=== PATIENT | male | born 1970 | race Caucasian/White ===

== ENCOUNTER 2023-11-01 21:57 | Emergency (ER) | payer OTHER ==
[2023-11-01 22:13] VITALS: BP 135/78; O2SAT 100
[2023-11-01] MEDS: TETANUS/DIPHTHERIA/PERTUSSIS 0.5 ML SYRINGE IM ONE (22:33)
--- NOTE | 2023-11-01 22:41 | ED Physician Documentation ---
PD HPI UPPER EXT INJURY - Stated complaint Stated Complaint: RT FINGER LAC - Chief complaint Chief Complaint: Laceration - History obtained from History obtained from: Patient - History of Present Illness Location: Right, Finger Where injury occurred: Home - Additonal information Additional information: 53-year-old male presents to the emergency department with a laceration to the right fourth digit. This occurred at home about 3 hours prior to arrival. He was putting a metal stake in the ground and it accidentally cut his finger. Unknown last tetanus shot. Nothing makes it better or worse. Not anticoagulated. No numbness or tingling. PD PAST MEDICAL HISTORY - Past Medical History Past Medical History: No Cardiovascular: None Respiratory: None Neuro: None Endocrine/Autoimmune: None GI: None : None HEENT: None Psych: None Musculoskeletal: None Derm: None - Past Surgical History Past Surgical History: Yes General: Other Ortho: Other - Present Medications Home Medications: Ambulatory Orders Medication Instructions Recorded Confirmed No Known Home Medications 11/01/23 11/01/23 - Allergies Allergies/Adverse Reactions: Allergies Allergy/AdvReac Type Severity Reaction Status Date / Time No Known Drug Allergies Allergy Verified 11/01/23 22:12 - Social History Does the pt smoke?: No Smoking Status: Never smoker Does the pt drink ETOH?: No Does the pt have substance abuse?: No - Immunizations Immunizations are current?: No Immunizations: TDAP >10years/unknown - POLST Patient has POLST: No PD ED PE NORMAL - Vitals Vital signs reviewed: Yes - General General: Alert and oriented X 3, No acute distress - Derm Derm: Warm and dry - Extremities Extremities: Other (R ring finger - 2cm laceration over the PIP joint. NVI. no tendon injury, tested vs resistance. ) - Neuro Neuro: Alert and oriented X 3 - Psych Psych: Normal mood, Normal affect Results - Vitals Vitals: Vital Signs - 24 hr 11/01/23 22:04 Temperature 36.4 C L Heart Rate 56 L Respiratory 16 Rate Blood Pressure 135/78 H O2 Saturation 100 Oxygen O2 Source Room air Procedures - Laceration (location) R ring finger Length in cm: 2 Wound type: Linear, Clean Neurovascular status: Sensory intact, Motor intact, Vascular intact Tendon involvement: Tendon intact Anesthesia: Lidocaine 1% Wound preparation: Irrigated copiously NS, Wound explored, To the base Skin layer closure: Interrupted, Size #-0 - enter number (4) Other: Patient tolerated well, No complications, Neurovascular intact, Dressing applied, Tetanus booster given PD Medical Decision Making - ED course Complexity details: reviewed results, re-evaluated patient, considered differential, d/w patient ED course: 53-year-old male with a laceration to the right ring finger. This was repaired. Tolerated well. No foreign body seen. Irrigated with approximately 500 mL of normal saline. Wound care instructions given at bedside. No evidence of tendon laceration. Neurovascularly intact. Tdap given. Placed in a finger splint for comfort and to help protect the joint. No evidence of joint involvement. Patient counseled regarding signs and symptoms for which I believe and urgent re-evaluation would be necessary. Patient with good understanding of and agreem ent to plan and is comfortable going home at this time This document was made in part using voice recognition software. While efforts are made to proofread this document, sound alike and grammatical errors may occur. Departure - Departure Disposition: 01 Home, Self Care Clinical Impression: Finger laceration Qualifiers: Encounter type: initial encounter Finger: ring finger Damage to nail status: without damage Foreign body presence: without foreign body Laterality: right Qualified Code(s): S61.214A - Laceration without foreign body of right ring fing er without damage to nail, initial encounter Condition: Good Instructions: ED Laceration Hand Follow-Up: Your,doctor in 10 to 14 days for suture removal [Other] Comments: Sutures should be removed in approximately 10 to 14 days. Keep the wound clean. Return if you notice redness, swelling or drainage from the wound. You were given a tetanus shot today as well. Forms: PCP List Discharge Date/Time: 11/01/23 22:55
== END 2023-11-01 22:55 | disposition home or self-care (01) ==
LOC: ED 21:57
DX: S61.214A Laceration without foreign body of right ring finger without damage to nail, initial encounter (principal); W26.8XXA Contact with other sharp object(s), not elsewhere classified, initial encounter; Y93.89 Activity, other specified; Y92.007 Garden or yard of unspecified non-institutional (private) residence as the place of occurrence of the external cause
CPT/HCPCS: 12001; 90471; 99283